=== PATIENT | female | born 1995 | race Caucasian/White ===

== ENCOUNTER → 2017-08-18 10:44 | Outpatient (CLI) | payer OTHER, SELFPAY ==
--- NOTE | 2017-08-18 10:48 | XR_ITS ---
XR knee LT 4V HISTORY: ITS.REASON: Left knee pain ORDERING PHYSICIAN: Josse Le MD PATIENT AGE: 22 years COMPARISON: None FINDINGS: Weightbearing views are performed No fracture or dislocation. No lytic or blastic change. Normal mineralization. No significant arthritic changes evident. No other significant findings IMPRESSION: Negative Knee
== END ==
PROVIDERS: PCP Internal Medicine Adolescent Medicine; Visit Provider Orthopaedic Surgery
DX: M25.562 Pain in left knee (principal)
CPT/HCPCS: 73564

== ENCOUNTER → 2017-09-07 15:11 | Outpatient (CLI) | payer OTHER, SELFPAY ==
--- NOTE | 2017-09-07 15:13 | MR_ITS ---
MR knee LT wo con HISTORY: Left knee pain, chronic pain following injury. Pain medially and laterally ORDERING PHYSICIAN: Josse Le MD PATIENT AGE: 22 years COMPARISON: Radiograph of 08/18/2017 TECHNIQUE: Standard multiplanar multiecho sequences are performed without contrast. FINDINGS: There is a buckling of the PCL which may be seen with ACL tears. The proximal aspect of the ACL is ill-defined and may be partially torn. There is a longitudinal tear involving the posterior horn of the medial meniscus nondisplaced. The collateral ligaments. As does the quadriceps tendon and patellar tendon. There is decreased T1 and increased T2 signal involving the proximal subarticular surface of the lateral tibial plateau posteriorly consistent with a bone bruise. There is a small knee joint effusion. No other significant anomalies are evident. IMPRESSION: 1. Partial tear versus sprain of the ACL proximally 2. Nondisplaced longitudinal tear of the posterior horn the medial meniscus. 3. Bone bruise of the proximal tibia laterally and posteriorly with small knee joint effusion
== END ==
PROVIDERS: Family Provider Nurse Practitioner Family; PCP Internal Medicine Adolescent Medicine; Visit Provider Orthopaedic Surgery
DX: M23.8X9 Other internal derangements of unspecified knee (principal)
CPT/HCPCS: 73721

== ENCOUNTER → 2017-10-12 15:31 | Outpatient (CLI) | payer OTHER, SELFPAY ==
[2017-10-12 16:10] LABS: Urine Pregnancy, HCG Qual. Negative (Negative)
[2017-10-12 16:12] LABS: Basophils % 0.4 % (0.1-2.0); Eosinophils # 0.1 K/mm3 (0.0-0.4); Eosinophils % 2.8 % (0.1-12.0); Hematocrit 39.5 % (37.0-47.0); Hemoglobin 12.7 g/dL (12.2-16.2); Lymphocytes % 41.9 K/mm3 (10-50); Mean Corpuscular HGB Conc 32.2 g/dL (31.8-35.4); Mean Corpuscular Hemoglobin 30.3 pg (27.0-31.2); Mean Corpuscular Volume 94.3 fl (81-99); Mean Platelet Volume 7.5 fl (7.4-10.4); Monocytes # 0.3 K/mm3 (0.1-1.0); Monocytes % 5.6 % (1.7-9.3); Neutrophils # 2.4 K/mm3 (1.8-7.8); Neutrophils % 49.3 % (37.0-80.0); Platelet Count 256 K/mm3 (142-424); Red Blood Count 4.18 M/mm3 (4.20-5.40); Red Cell Distribution Width 11.9 % (11.5-17.5); White Blood Count 4.8 K/mm3 (4.8-10.8)
[2017-10-12 19:02] LABS: Anion Gap 13.4 mEq/L (5-15); Blood Urea Nitrogen 6 mg/dL (7-18); Carbon Dioxide 26 mmol/L (21.0-32.0); Chloride 104 mmol/L (98-107); Creatinine,Serum 0.63 mg/dL (0.55-1.02); Estimated Glomerular Filt Rate 118 ml/min (>60); GFR (African American) 143 ML/MIN (>60); Glucose 81 mg/dL (74-106); Potassium 4.4 mmoL/L (3.5-5.1); Sodium 139 mmol/L (136-145)
== END ==
PROVIDERS: Visit Provider Orthopaedic Surgery
DX: S83.512D Sprain of anterior cruciate ligament of left knee, subsequent encounter (principal); S83.242D Other tear of medial meniscus, current injury, left knee, subsequent encounter; Z01.818 Encounter for other preprocedural examination
CPT/HCPCS: 36415; 80048; 81025; 85025

== ENCOUNTER → 2018-01-26 10:32 | Outpatient (CLI) | payer OTHER, SELFPAY ==
--- NOTE | 2018-01-26 10:34 | XR_ITS ---
XR knee LT 4V HISTORY: Follow-up surgery, ACL reconstruction ITS.REASON: s/p ACL recon, medial men. repair 10/24/17 ORDERING PHYSICIAN: Amadeo Gunter MD PATIENT AGE: 22 years COMPARISON: 10/24/2017 FINDINGS: Status post ACL repair with good alignment. No fracture or dislocation. No significant arthritic change. Small metallic plates are present along the distal femur laterally and proximal tibia medially. IMPRESSION: Status post ACL repair, no acute finding
== END ==
PROVIDERS: PCP Internal Medicine Adolescent Medicine; Visit Provider Orthopaedic Surgery
DX: Z48.89 Encounter for other specified surgical aftercare (principal); Z98.890 Other specified postprocedural states
CPT/HCPCS: 73564

== ENCOUNTER → 2018-08-16 11:00 | Outpatient (CLI) | payer OTHER, SELFPAY ==
--- NOTE | 2018-08-16 11:50 | MR_ITS ---
MR knee LT wo/w con HISTORY: Twisting injury with pain medial and posterior. Prior ACL repair October 2017 ITS.REASON: Lt knee injury ORDERING PHYSICIAN: Amadeo Gunter MD PATIENT AGE: 23 years Comparison: 01/26/2018, 09/07/2017 TECHNIQUE: Standard multiplanar multiecho sequences are performed without and with contrast enhancement. FINDINGS: Postoperative changes are present from a prior ACL repair. The ACL graft has an undulated appearance. The ACL graft appears intact. Posterior cruciate ligament also appears intact. There is heterogeneous signal intensity of the graft distally within the proximal tibia which may really represent postsurgical change. The collateral ligaments are unremarkable. Patellar tendon and quadriceps tendon has an unremarkable appearance. There is a small knee joint effusion. Artifact is present from metallic anchors at the distal femur and proximal tibia from ACL repair. There is a nondisplaced tear involving the posterior horn of the medial meniscus with both horizontal and longitudinal component. No abnormal enhancement apparent. No bone bruise evident. IMPRESSION: 1. Status post ACL repair with postsurgical changes and small knee joint effusion. The ACL graft does appear intact 2. Nondisplaced tear involves the posterior horn of the medial meniscus with a somewhat similar appearance compared to the previous exam
== END ==
PROVIDERS: PCP Internal Medicine Adolescent Medicine; Visit Provider Orthopaedic Surgery
DX: Z98.890 Other specified postprocedural states (principal)
CPT/HCPCS: 73723; A9576

== ENCOUNTER → 2019-01-25 15:36 | Outpatient (CLI) | payer OTHER, SELFPAY ==
--- NOTE | 2019-01-25 15:43 | MR_ITS ---
MR knee LT wo/w con HISTORY: Left knee instability with popping and swelling. Pain ITS.REASON: reinjury sp LT knee acl reconstruction ORDERING PHYSICIAN: Amadeo Gunter MD PATIENT AGE: 23 years Comparison: 08/16/2018 TECHNIQUE: Standard multiplanar multiecho sequences are performed without and with gadolinium enhancement. FINDINGS: Status post ACL repair. The ACL graft appears intact. The posterior cruciate ligament and collateral ligaments appear intact. Patellar tendon and quadriceps tendon have an unremarkable appearance. There does appear to be a persistent tear involving the posterior horn of the medial meniscus similar to the previous exam. Artifact is present from a prior ACL repair. Small knee joint effusion is noted. No abscess. No evidence of osteomyelitis. Overall no significant change from the previous exam. IMPRESSION: Status post ACL repair. The ACL does appear to be intact. Nondisplaced oblique tear is suspected at the posterior horn the medial meniscus not significant change. Overall no significant change from previous exam
--- NOTE | 2019-01-25 16:41 | HMH.ITSHM ---
Current Home Medications as stated by this patient Daniel Mcmahan or inbound customer service representative. [][employer]
== END ==
PROVIDERS: PCP Internal Medicine Adolescent Medicine; Visit Provider Orthopaedic Surgery
DX: Z98.890 Other specified postprocedural states (principal)
CPT/HCPCS: 73723; A9576

== ENCOUNTER 2019-05-10 09:30 | Outpatient (RCR) | payer OTHER, SELFPAY | END 2019-05-10 09:35 | disposition home or self-care (01) | LOC: PT 09:30 | PROVIDERS: PCP Internal Medicine Adolescent Medicine; Visit Provider Orthopaedic Surgery | DX: Z96.652 Presence of left artificial knee joint (principal); M25.562 Pain in left knee | CPT/HCPCS: 97010; 97014; 97016; 97110; 97140; 97163; G0283 ==

== ENCOUNTER → 2019-07-12 08:11 | Outpatient (CLI) | payer OTHER, SELFPAY ==
--- NOTE | 2019-07-12 08:29 | XR_ITS ---
PROCEDURE: XR KNEE LT 2V CLINICAL INDICATION: HEALING OF BONE GRAPH IN ACL RECONSTRUCTION TUNNELS COMPARISON: [id number] XR knee LT 4V from 01/26/2018 FINDINGS: The small metallic plate is seen adjacent to the lateral femoral condyle. The small metallic plate adjacent to the medial proximal tibia has been removed. There may be a tiny loose body seen between the tibial spines which was not definitely seen previously. The soft tissues are normal. IMPRESSION: Postsurgical changes as noted, question tiny loose body Dictated by: Dr. Tadeo Lorenzo MD 07/12/2019 08:[address] Tadeo Lorenzo MD in [place] 07/12/2019 08:48
== END ==
PROVIDERS: PCP Internal Medicine Adolescent Medicine; Visit Provider Orthopaedic Surgery
DX: M25.562 Pain in left knee (principal)
CPT/HCPCS: 73560

== ENCOUNTER → 2020-03-19 11:31 | Outpatient (CLI) | payer OTHER, MEDICAID, SELFPAY | PROVIDERS: Visit Provider Internal Medicine Adolescent Medicine | DX: Z03.818 Encounter for observation for suspected exposure to other biological agents ruled out (principal) | CPT/HCPCS: U0003 ==

== ENCOUNTER 2020-04-01 15:00 | Outpatient (RCR) | payer OTHER, MEDICAID, SELFPAY | END 2020-04-01 16:03 | disposition home or self-care (01) | LOC: PT 15:00 | PROVIDERS: PCP Internal Medicine Adolescent Medicine; Visit Provider Orthopaedic Surgery | DX: S83.512D Sprain of anterior cruciate ligament of left knee, subsequent encounter (principal); S83.242D Other tear of medial meniscus, current injury, left knee, subsequent encounter; M25.562 Pain in left knee | CPT/HCPCS: 97010; 97014; 97016; 97110; 97112; 97140; 97163; 97164; G0283 ==

== ENCOUNTER → 2021-03-22 14:13 | Outpatient (CLI) | payer OTHER, SELFPAY | PROVIDERS: PCP Internal Medicine Adolescent Medicine; Visit Provider Nurse Practitioner Family | DX: Z20.822 Contact with and (suspected) exposure to COVID-19 (principal) | CPT/HCPCS: U0003 ==